=== PATIENT | male | born 1930 | race Caucasian/White ===

== ENCOUNTER → 2017-08-24 | Outpatient (REF) | payer MEDICARE ==
[2017-08-25 13:52] LABS: GAMMA GLUTAMYLTRANSPEPTIDASE 209 U/L (15-85)
== END ==
LOC: M LAB REF 13:32
DX: R74.8 Abnormal levels of other serum enzymes (principal)

== ENCOUNTER → 2017-09-02 | Outpatient (REF) | payer MEDICARE ==
[2017-09-02 15:03] LABS: VITAMIN B12 LEVEL 888 PG/ML (247-911)
== END ==
LOC: M LAB REF 13:36
DX: G30.9 Alzheimer's disease, unspecified (principal)
CPT/HCPCS: 82607

== ENCOUNTER 2020-01-26 11:55 | Emergency (ER) | payer MEDICARE ==
[~2020-01-26 11:55] MED LIST: ARIC1TAB PO; ASPI81TAEC PO; FURO20TA2 PO; ZOFR4TAB14 SL
[2020-01-26 13:03] LABS: BASO # 0.1 10^3/uL (0.0-0.2); BASO % 0.7 % (0.0-1.0); EOS # 0.1 10^3/uL (0.0-0.5); EOS % 1.4 % (0.0-3.0); HEMOGLOBIN 13.4 g/dl (13.5-17.5); LYMPH # 1.1 10^3/uL (1.5-5.0); LYMPH % 11.8 % (24.0-44.0); MEAN CORPUSCULAR HEMOGLOBIN 30.5 pg (27.0-33.0); MEAN CORPUSCULAR HGB CONC 31.9 g/dl (32.0-36.5); MEAN CORPUSCULAR VOLUME 95.7 fl (80.0-96.0); MONO # 0.8 10^3/uL (0.0-0.8); MONO % 8.5 % (0.0-5.0); NEUTROPHILS # 7.1 10^3/uL (1.5-8.5); NEUTROPHILS % 76.7 % (36.0-66.0); PLATELET COUNT, AUTOMATED 264 10^3/uL (150-450); RED BLOOD COUNT 4.39 10^6/uL (4.30-6.10); WHITE BLOOD COUNT 9.2 10^3/uL (4.0-10.0)
--- NOTE | 2020-01-26 13:09 | REP ---
INDICATION: Abdominal Pain. COMPARISON: Comparison radiograph August 26, 2017.. TECHNIQUE: Supine views of the chest and abdomen are augmented by cross-table lateral radiograph of the abdomen. Four views. FINDINGS: Chest radiograph shows no evidence of infiltrate or effusion. Heart size is borderline unchanged. The aorta is tortuous. Supine and cross-table lateral views of the abdomen show air and stool in a nondistended colon. No small bowel or large bowel dilation is seen. There is no evidence of free air. Vascular calcification is noted in a normal caliber aorta. No mass or organomegaly is seen. IMPRESSION: Normal bowel gas pattern. Mildly prominent heart. No evidence of free air or obstruction.. <Electronically signed by Salomón Gaitan > 01/26/20 [id number]
--- NOTE | 2020-01-26 13:11 | REP ---
INDICATION: fall. COMPARISON: None. TECHNIQUE: AP and frogleg views of each hip are augmented by an AP view of the pelvis. FINDINGS: The bony pelvic ring is intact. No sacral or pelvic fracture is seen. There is moderate bilateral hip joint osteoarthritis. Femoral heads are smooth and rounded. No fracture is seen. Periarticular soft tissues are unremarkable. IMPRESSION: Bilateral hip osteoarthritis. No hip or pelvic fracture seen. <Electronically signed by Salomón Gaitan > 01/26/20 [id number]
[2020-01-26 13:25] LABS: ALBUMIN 3.3 GM/DL (3.2-5.2); BILIRUBIN,DIRECT 0.1 MG/DL (0.0-0.2); BILIRUBIN,TOTAL 0.5 MG/DL (0.2-1.0); CALCIUM LEVEL 9.1 MG/DL (8.8-10.2); CREATININE FOR GFR 1.38 MG/DL (0.70-1.30); GLOMERULAR FILTRATION RATE 51.8 (>35); POTASSIUM SERUM 4.5 MEQ/L (3.5-5.1); TOTAL PROTEIN 7.1 GM/DL (6.4-8.2)
[2020-01-26] MEDS ORDERED: MAGNESIUM CITRATE 300 ML BTL PO ONE (14:45)
[2020-01-26 15:25] VITALS: BP 145/72
== END 2020-01-26 15:35 | disposition home or self-care (01) ==
LOC: EDBD 11:55 → M ED 11:55
DX: K59.00 Constipation, unspecified (principal); I51.9 Heart disease, unspecified; M16.0 Bilateral primary osteoarthritis of hip; Z79.82 Long term (current) use of aspirin; Z79.899 Other long term (current) drug therapy

== ENCOUNTER 2020-02-24 09:47 | Inpatient (IN) | payer MEDICARE ==
[~2020-02-24] VITALS: Ht 172.7 cm; Wt 73.6 kg
[2020-02-24] MEDS ORDERED: SERT25TA85 PO (10:18)
--- NOTE | 2020-02-24 10:44 | REP ---
INDICATION: trauma COMPARISON: 08/25/2017 TECHNIQUE: Axial noncontrast images from the skull base to the thoracic inlet with coronal reformations. This CT examination was performed using the following dose reduction techniques: Automated exposure control, adjustment of mA and/or kv according to the patient's size, and use of iterative reconstruction technique. FINDINGS: Age-related atrophy and microvascular ischemic changes are appreciated. The ventricles and sulci are symmetric. Kumar-white differentiation is maintained. There is no evidence for acute intracranial hemorrhage, mass/mass effect, pathology or infarction. No extra-axial fluid collection. Calvarium is intact. Paranasal sinuses and mastoid air cells are clear. IMPRESSION: Age related atrophy and microvascular ischemic changes. No acute intracranial hemorrhage, infarction, or mass/mass effect. <Electronically signed by Julio César Cortez > 02/24/20 [id number]
[2020-02-24] MEDS: NS 1,000 ML IV SCH ×2 (10:57→20:52)
[2020-02-24 11:06] LABS: BASO # 0.1 10^3/uL (0.0-0.2); EOS # 0.1 10^3/uL (0.0-0.5); EOS % 1.9 % (0.0-3.0); HEMATOCRIT 41.3 % (42.0-52.0); HEMOGLOBIN 13.2 g/dl (13.5-17.5); LYMPH # 1.3 10^3/uL (1.5-5.0); LYMPH % 19.8 % (24.0-44.0); MEAN CORPUSCULAR HEMOGLOBIN 30.6 pg (27.0-33.0); MEAN CORPUSCULAR VOLUME 95.8 fl (80.0-96.0); MONO # 0.7 10^3/uL (0.0-0.8); MONO % 10.8 % (0.0-5.0); NEUTROPHILS # 4.2 10^3/uL (1.5-8.5); NEUTROPHILS % 66.2 % (36.0-66.0); PLATELET COUNT, AUTOMATED 233 10^3/uL (150-450); RED BLOOD COUNT 4.31 10^6/uL (4.30-6.10); WHITE BLOOD COUNT 6.3 10^3/uL (4.0-10.0)
--- NOTE | 2020-02-24 11:10 | REP ---
INDICATION: Altered Mental Status COMPARISON: 01/26/2020 TECHNIQUE: Portable AP view of the chest FINDINGS: Examination is limited by portable technique, underpenetration, and poor inspiratory effort. Mediastinum and cardiac silhouette are grossly stable. Lung evans demonstrate chronic appearing interstitial changes. No obvious focal consolidation, effusion, or pneumothorax. IMPRESSION: Limited examination demonstrates presumed chronic stable changes. No obvious focal consolidation or effusion. <Electronically signed by Julio César Cortez > 02/24/20 1103
[2020-02-24 11:45] LABS: ALBUMIN 3.4 GM/DL (3.2-5.2); ALT/SGPT 21 U/L (12-78); BILIRUBIN,DIRECT 0.1 MG/DL (0.0-0.2); BILIRUBIN,TOTAL 0.4 MG/DL (0.2-1.0); BLOOD UREA NITROGEN 28 MG/DL (7-18); CALCIUM LEVEL 8.9 MG/DL (8.8-10.2); CARBON DIOXIDE LEVEL 30 MEQ/L (21-32); CHLORIDE LEVEL 110 MEQ/L (98-107); CK-MB VALUE MASS 4.4 NG/ML (<3.6); CPK CREATINE PHOSPHOKINASE 235 U/L (39-308); CREATININE FOR GFR 1.39 MG/DL (0.70-1.30); GLOMERULAR FILTRATION RATE 51.3 (>35); GLUCOSE, FASTING 67 MG/DL (70-100); MB/CK RELATIVE INDEX 1.87 (< OR =4); POTASSIUM SERUM 4.1 MEQ/L (3.5-5.1); SODIUM LEVEL 144 MEQ/L (136-145); TOTAL PROTEIN 6.9 GM/DL (6.4-8.2); TROPONIN I < 0.02 NG/ML (< 0.10)
[2020-02-24] MEDS ORDERED: ASPI-161 PO (11:45)
[2020-02-24] MEDS ORDERED: DIPH25CA32 PO (11:45)
[2020-02-24] MEDS ORDERED: FURO20TA2 PO (11:45)
[2020-02-24 12:08] LABS: OSMOLALITY SERUM 301 MOSM/KG (280-301)
[2020-02-24] MEDS ORDERED: ACETAMINOPHEN TAB 650MG DOSE (2X325MG) PO PRN (14:15)
--- NOTE | 2020-02-24 14:59 | HPEPDOC ---
General Date of Admission 02/24/20 Date of Service: Feb 24, 2020 Chief Complaint The patient is a 89-year-old male admitted with a reason for visit of FALL. Source: Family Exam Limitations: Dementia Timing/Duration: Day(s) Severity: Moderate History of Present Illness Patient is 89 years old male with past medical history of severe dementia, hypertension, cardiomegaly presented to the hospital with altered mental status. According to the family, patient has been having progressive dementia with deconditioning. He became combative and also developed multiple mechanical falls. In ER patient does not have leukocytosis. CT head was done and was negative for stroke or acute bleed. Chest XR negative for acute pulmonary diseases. Home Medications Scheduled Aspirin (Aspirin EC) 81 Mg Tablet.dr, 81 MG PO DAILY, (Reported) Furosemide (Furosemide) 20 Mg Tablet, 20 MG PO DAILY, (Reported) Sertraline Hcl (Sertraline HCl) 25 Mg Tablet, 25 MG PO DAILY, (Reported) Scheduled PRN Diphenhydramine HCl (Diphenhydramine HCl) 25 Mg Capsule, 25 MG PO QHS PRN for SLEEP, (Reported) Allergies Coded Allergies: No Known Allergies (Unverified , 02/24/20) Past Medical History Medical History Hard of hearing, dementia, Congestive heart failure (CHF), Hypertensive heart disease with uncontrolled hypertension, Acute encephalopathy on chronic dementia, mini mental status 06/17, Anemia of chronic disease, 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, Cardiomegaly Surgical History Appendectomy, hernia repair Family History Alzheimer's Social History * Smoker: Denies Alcohol: Denies Drugs: denies A-FIB/CHADSVASC A-FIB History Current/History of A-Fib/PAF?: No Current PO Anticoag Therapy: No Review of Systems Constitutional: Reports: Weakness, Fatigue; Denies: Chills, Fever Eyes: Denies: Pain, Vision change ENT: Denies: Head Aches Skin: Denies: Rash, Lesions Pulmonary: Denies: Dyspnea, Cough Cardiovascular: Denies: Chest Pain, Palpitations Gastrointestinal: Denies: Nausea, Vomiting Genitourinary: Denies: Dysuria, Frequency Hematologic: Denies: Bruising, Bleeding Excessively Endocrine: Denies: Polydipsia, Polyphagia Musculoskeletal: Denies: Neck Pain Neurological: Denies: Weakness Psych: Reports: Memory Issues Physical Examination General Exam: Positive: Moderate Distress Eye Exam: Positive: PERRLA ENT Exam: Positive: Atraumatic Neck Exam: Positive: Supple; Negative: JVD Chest Exam: Positive: Diminished Heart Exam: Positive: Rate Normal Telemetry: Positive: No significant arrhythmia Abdomen Exam: Positive: Normal bowel sounds Extremity Exam: Negative: Clubbing, Cyanosis Skin Exam: Positive: Nl turgor and temperature Neuro Exam: Positive: Strength at 5/5 X4 ext, Cranial Nerves 3-12 NL Psych Exam: Positive: Mental status NL, Oriented x 3 Vital Signs Vital Signs Date Time Temp Pulse Resp B/P (MAP) Pulse Ox O2 Delivery O2 Flow Rate FiO2 02/24/20 10:10 98.5 90 16 173/80 (111) 96 Room Air Laboratory Data Labs 24H Laboratory Tests 2 02/24/20 10:41: Immature Granulocyte % (Auto) 0.3, Neutrophils (%) (Auto) 66.2H, Lymphocytes (%) (Auto) 19.8L, Monocytes (%) (Auto) 10.8H, Eosinophils (%) (Auto) 1.9, Basophils (%) (Auto) 1.0, Neutrophils # (Auto) 4.2, Lymphocytes # (Auto) 1.3L, Monocytes # (Auto) 0.7, Eosinophils # (Auto) 0.1, Basophils # (Auto) 0.1, Nucleated Red Blood Cells % (auto) 0.0, Anion Gap 4L, Glomerular Filtration Rate 51.3, Osmolality 301, Lactic Acid Level 1.0, Calcium Level 8.9, Total Bilirubin 0.4, Direct Bilirubin 0.1, Aspartate Amino Transf (AST/SGOT) 18, Alanine Aminotransferase (ALT/SGPT) 21, Alkaline Phosphatase 112, Ammonia < 10, Total Creatine Kinase 235, Creatine Kinase MB 4.4H, Creatine Kinase MB Relative Index 1.87, Troponin I < 0.02, Total Protein 6.9, Albumin 3.4, Albumin/Globulin Ratio 1.0, Thyroid Stimulating Hormone (TSH) 1.980 CBC/BMP Laboratory Tests 02/24/20 10:41 Microbiology Microbiology 02/24/20 Respiratory Virus Panel (PCR) ([facility]) - Final, Complete Assessment/Plan Patient is 89 years old male with past medical history of severe dementia, hypertension, cardiomegaly presented to the hospital with altered mental status. According to the family, patient has been having progressive dementia with deconditioning. He became combative and also developed multiple mechanical falls. In ER patient does not have leukocytosis. CT head was done and was negative for stroke or acute bleed. Chest XR negative for acute pulmonary diseases. Problems (1) Altered mental status Status: Acute Problem Text: Metabolic encephalopathy Most likely secondary to progression of dementia (2) ALEXANDRA (acute kidney injury) Status: Acute Problem Text: Most likely combined renal and prerenal Most likely secondary to dehydration IV fluid (3) Congestive heart failure Status: Chronic Problem Text: Diastolic CHF Not in acute exacerbation Discharge Lasix secondary to dehydration . (4) Physical deconditioning Status: Chronic Problem Text: PT/OT (5) Hypertension Status: Chronic Problem Text: Amlodipine 10 mg Plan / VTE VTE Prophylaxis Ordered?: Yes CRICKET ROSENTHAL DO Feb 24, 2020 14:59
[2020-02-24] MEDS ORDERED: amLODIPine 10 MG TAB PO ONE (15:15)
[2020-02-24] MEDS: ENOXAPARIN 40MG/0.4ML SYRINGE (J1650 PER 10MG) SC SCH (15:42)
[2020-02-24 15:45] VITALS: BP 163/84
[2020-02-24] MEDS: QUEtiapine FUMARATE 12.5 MG HALF-TAB PO SCH (18:56)
--- NOTE | 2020-02-24 21:37 | ECGEPIP ---
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
[2020-02-24 22:00] VITALS: BP 102/59
[2020-02-25 06:00] VITALS: BP 119/80
[2020-02-25] MEDS: NS 1,000 ML IV SCH ×2 (06:34→16:59)
[2020-02-25 06:45] LABS: HEMATOCRIT 38.4 % (42.0-52.0); HEMOGLOBIN 12.6 g/dl (13.5-17.5); MEAN CORPUSCULAR HEMOGLOBIN 31.6 pg (27.0-33.0); MEAN CORPUSCULAR HGB CONC 32.8 g/dl (32.0-36.5); MEAN CORPUSCULAR VOLUME 96.2 fl (80.0-96.0); PLATELET COUNT, AUTOMATED 211 10^3/uL (150-450); RED BLOOD COUNT 3.99 10^6/uL (4.30-6.10); WHITE BLOOD COUNT 8.1 10^3/uL (4.0-10.0)
[2020-02-25 07:09] LABS: ALBUMIN 2.8 GM/DL (3.2-5.2); ALT/SGPT 18 U/L (12-78); BILIRUBIN,TOTAL 0.5 MG/DL (0.2-1.0); BLOOD UREA NITROGEN 20 MG/DL (7-18); CALCIUM LEVEL 8.1 MG/DL (8.8-10.2); CARBON DIOXIDE LEVEL 25 MEQ/L (21-32); CHLORIDE LEVEL 114 MEQ/L (98-107); CREATININE FOR GFR 1.02 MG/DL (0.70-1.30); GLOMERULAR FILTRATION RATE > 60.0 (>35); GLUCOSE, FASTING 108 MG/DL (70-100); SODIUM LEVEL 144 MEQ/L (136-145); TOTAL PROTEIN 6.1 GM/DL (6.4-8.2)
[2020-02-25] MEDS ORDERED: FUROSEMIDE 20 MG TAB PO SCH (09:00)
[2020-02-25] MEDS: ENOXAPARIN 40MG/0.4ML SYRINGE (J1650 PER 10MG) SC SCH (10:07)
[2020-02-25] MEDS: BISACODYL 5 MG TAB PO SCH ×2 (10:08→20:31)
[2020-02-25] MEDS: ASPIRIN 81 MG ENTERIC TAB PO SCH (10:08)
[2020-02-25] MEDS: SERTRALINE HCL 25 MG TABLET PO SCH (10:08)
[2020-02-25] MEDS: amLODIPine 10 MG TAB PO SCH (10:10)
[2020-02-25 14:00] VITALS: BP 125/75
--- NOTE | 2020-02-25 19:53 | IPNPDOC ---
Text Note Date of Service The patient was seen on 02/25/20. NOTE Subjective: Yesterday evening patient developed agitation, he tried to remove IV line Objective: GENERAL APPEARANCE: NAD HEENT: no scleral icterus, no JVD, EOMI CARDIOVASCULAR: S1S2 LUNGS: CTA ABDOMEN: soft & not tender w palpitation MUSCULOSKELETAL: no cyanosis, no swelling INTEGUMENT: no generalized pallor NEUROLOGICAL: Follows commands, no focal deficiency Assessment/Plan Patient is 89 years old male with past medical history of severe dementia, hypertension, cardiomegaly presented to the hospital with altered mental status. According to the family, patient has been having progressive dementia with deconditioning. He became combative and also developed multiple mechanical falls. In ER patient does not have leukocytosis. CT head was done and was negati ve for stroke or acute bleed. Chest XR negative for acute pulmonary diseases. Problems (1) Altered mental status/Metabolic encephalopathy/delirium Acute metabolic encephalopathy resolved, but patient continues to be forgetful and not oriented in time and place Most likely secondary to progression of dementia Continue Seroquel 12.5 daily at bedtime (2) ALEXANDRA (acute kidney injury) Resolved (3) Congestive heart failure Diastolic CHF Not in acute exacerbation Discharge Lasix secondary to dehydration (4) Physical deconditioning PT/OT (5) Hypertension Amlodipine 10 mg VS,Fishbone, I+O VS, Fishbone, I+O Laboratory Tests 02/25/20 06:31 Vital Signs Date Time Temp Pulse Resp B/P (MAP) Pulse Ox O2 Delivery O2 Flow Rate FiO2 02/25/20 14:00 98.2 93 22 125/75 (92) 97 Room Air I&O- Last 24 Hours up to 6 AM 02/25/20 06:00 Intake Total 3160 ml Output Total 1350 ml Balance 1810 ml CRICKET ROSENTHAL DO Feb 25, 2020 19:53
[2020-02-25] MEDS: QUEtiapine FUMARATE 12.5 MG HALF-TAB PO SCH (20:31)
[2020-02-25 22:00] VITALS: BP 144/72
[2020-02-26] MEDS ORDERED: cefTRIAXone SOD 1 GM in D5W MINI-BAG PLUS 50 ML IV SCH (04:00)
[2020-02-26 06:00] VITALS: BP 132/69
[2020-02-26 06:20] LABS: HEMOGLOBIN 11.6 g/dl (13.5-17.5); MEAN CORPUSCULAR HEMOGLOBIN 30.7 pg (27.0-33.0); MEAN CORPUSCULAR HGB CONC 32.2 g/dl (32.0-36.5); MEAN CORPUSCULAR VOLUME 95.2 fl (80.0-96.0); PLATELET COUNT, AUTOMATED 207 10^3/uL (150-450); RED BLOOD COUNT 3.78 10^6/uL (4.30-6.10); WHITE BLOOD COUNT 10.9 10^3/uL (4.0-10.0)
[2020-02-26 06:34] LABS: BLOOD UREA NITROGEN 14 MG/DL (7-18); CALCIUM LEVEL 8.1 MG/DL (8.8-10.2); CARBON DIOXIDE LEVEL 24 MEQ/L (21-32); CHLORIDE LEVEL 112 MEQ/L (98-107); CREATININE FOR GFR 1.02 MG/DL (0.70-1.30); GLOMERULAR FILTRATION RATE > 60.0 (>35); GLUCOSE, FASTING 102 MG/DL (70-100); MAGNESIUM LEVEL 1.6 MG/DL (1.8-2.4); POTASSIUM SERUM 3.7 MEQ/L (3.5-5.1); SODIUM LEVEL 142 MEQ/L (136-145)
[2020-02-26] MEDS: ENOXAPARIN 40MG/0.4ML SYRINGE (J1650 PER 10MG) SC SCH (09:17)
[2020-02-26] MEDS: BISACODYL 5 MG TAB PO SCH ×2 (09:17→20:00)
[2020-02-26] MEDS: SERTRALINE HCL 25 MG TABLET PO SCH (09:18)
[2020-02-26] MEDS: ASPIRIN 81 MG ENTERIC TAB PO SCH (09:18)
[2020-02-26] MEDS: amLODIPine 10 MG TAB PO SCH (09:21)
[2020-02-26] MEDS ORDERED: ISOVUE-370 76% 100ML VIAL As Ordered ONE (09:42)
--- NOTE | 2020-02-26 10:36 | REP ---
INDICATION: hematuria. COMPARISON: 12/31/2009 TECHNIQUE: Axial contrast-enhanced images from the lung bases to the pubic symphysis using 100 cc Isovue 370 intravenous contrast material. Coronal and sagittal reformations obtained. This CT examination was performed using the following dose reduction techniques: Automated exposure control, adjustment of mA and/or kv according to the patient's size, and the use of iterative reconstruction technique. FINDINGS: Lung bases demonstrate bibasilar atelectasis. Moderate to large hiatal hernia unchanged. Liver is essentially normal and includes stable subcentimeter cyst. Spleen, pancreas, gallbladder, and bilateral adrenal glands are normal. Kidneys demonstrate age-related cortical atrophy and innumerable bilateral cortical and parapelvic cysts essentially unchanged from prior examination. No acute perinephric stranding, nephrolithiasis or hydronephrosis noted. The enteric system demonstrates moderate fecal stasis without obstruction or acute inflammatory process. Pelvis demonstrates moderately distended bladder and heterogeneously enlarged prostate gland with mass effect on the base of the bladder suggesting outlet obstruction. No ascites. No free air. No adenopathy. Atherosclerotic changes to the aorta and vasculature noted without aneurysm or dissection. Musculoskeletal structures demonstrate degenerative changes without acute osseous abnormality. IMPRESSION: 1. Mild bibasilar atelectasis. 2. Chronic relatively stable abdominopelvic findings as described above. 3. Moderately distended bladder likely secondary to outlet obstruction with underlying prostatomegaly. 4. No acute ascites, focal inflammatory stranding, adenopathy, or free air. <Electronically signed by Julio César Cortez > 02/26/20 3100
--- NOTE | 2020-02-26 10:46 | REP ---
INDICATION: blood in urine COMPARISON: None TECHNIQUE: Real time vincent scale ultrasound examination using curved array transducer. FINDINGS: Examination is limited due to the patient's inability to cooperate. The kidneys demonstrate cortical thinning along with cortical and peripelvic cysts. Mild hydronephrosis cannot be excluded. Right kidney measures 10.6 x 5.9 x 5.7 cm. Left kidney measures 14.2 x 4.5 x 5.9 cm. The bladder is distended and trabeculated likely secondary to chronic outlet obstruction. Prostate gland is enlarged and measures greater than 5.0 x 4.0 x 4.8 cm. IMPRESSION: 1. Limited evaluation of the kidneys with bilateral cortical and peripelvic cystic changes noted. Mild hydronephrosis cannot definitively be excluded. 2. Bladder demonstrates changes related to chronic outlet obstruction with underlying prostatomegaly. <Electronically signed by Julio César Cortez > 02/26/20 1042
[2020-02-26] MEDS ORDERED: MAG SULF 1GM/100ML (MAG RUN) 1 GM in IV 1 EA IV ONE ×2 (13:00→17:00)
--- NOTE | 2020-02-26 16:05 | IPNPDOC ---
Text Note Date of Service The patient was seen on 02/26/20. NOTE Subjective: Patient developed few episodes of hematuria. Continues to be conf used in the morning. Objective: GENERAL APPEARANCE: NAD HEENT: no scleral icterus, no JVD, EOMI CARDIOVASCULAR: S1S2 LUNGS: CTA ABDOMEN: soft & not tender w palpitation MUSCULOSKELETAL: no cyanosis, no swelling INTEGUMENT: no generalized pallor NEUROLOGICAL: Follows commands, no focal deficiency Assessment/Plan Patient is 89 years old male with past medical history of severe dementia, hypertension, cardiomegaly presented to the hospital with altered mental status. According to the family, patient has been having progressive dementia with deconditioning. He became combative and also developed multiple mechanical falls. In ER patient does not have leukocytosis. CT head was done and was negat supa for stroke or acute bleed. Chest XR negative for acute pulmonary diseases. Problems Altered mental status/Metabolic encephalopathy/delirium UA came back positive for pyuria and hematuria Continue Seroquel 12.5 daily at bedtime UTI Patient has pyuria with hematuria CT abdomen and pelvis was done and showed Moderately distended bladder likely secondary to outlet obstruction with underlying prostatomegaly. Kidneys demonstrate age-related cortical atrophy and innumerable bilateral cortical and parapelvic cysts essentially unchanged from prior examination Continue with ceftriaxone Patient will need follow-up with urologist in the outpatient settings ALEXANDRA (acute kidney injury) Resolved Congestive heart failure Diastolic CHF Not in acute exacerbation dc Lasix secondary to dehydration Physical deconditioning PT/OT Hypertension Amlodipine 10 mg VS,Fishbone, I+O VS, Fishbone, I+O Laboratory Tests 02/26/20 05:44 Vital Signs Date Time Temp Pulse Resp B/P (MAP) Pulse Ox O2 Delivery O2 Flow Rate FiO2 02/26/20 09:21 88 122/60 02/26/20 06:00 97.5 20 93 Room Air I&O- Last 24 Hours up to 6 AM 02/26/20 06:00 Intake Total 3558 ml Output Total 350 ml Balance 3208 ml CRICKET ROSENTHAL DO Feb 26, 2020 16:05
[2020-02-26] MEDS: cefTRIAXone SOD 2 GM in D5W MINI-BAG PLUS 50 ML IV SCH (16:30)
[2020-02-26] MEDS: QUEtiapine FUMARATE 12.5 MG HALF-TAB PO SCH (20:00)
[2020-02-26 22:00] VITALS: BP 117/60
[2020-02-27 06:00] VITALS: BP 137/65
[2020-02-27 06:26] LABS: HEMATOCRIT 37.2 % (42.0-52.0); HEMOGLOBIN 12.2 g/dl (13.5-17.5); MEAN CORPUSCULAR HEMOGLOBIN 31.6 pg (27.0-33.0); MEAN CORPUSCULAR HGB CONC 32.8 g/dl (32.0-36.5); MEAN CORPUSCULAR VOLUME 96.4 fl (80.0-96.0); PLATELET COUNT, AUTOMATED 213 10^3/uL (150-450); RED BLOOD COUNT 3.86 10^6/uL (4.30-6.10); WHITE BLOOD COUNT 5.5 10^3/uL (4.0-10.0)
[2020-02-27 06:47] LABS: BLOOD UREA NITROGEN 15 MG/DL (7-18); CARBON DIOXIDE LEVEL 25 MEQ/L (21-32); CHLORIDE LEVEL 112 MEQ/L (98-107); GLOMERULAR FILTRATION RATE > 60.0 (>35); GLUCOSE, FASTING 86 MG/DL (70-100); MAGNESIUM LEVEL 2.2 MG/DL (1.8-2.4); POTASSIUM SERUM 3.8 MEQ/L (3.5-5.1); SODIUM LEVEL 145 MEQ/L (136-145)
[2020-02-27] MEDS: ENOXAPARIN 40MG/0.4ML SYRINGE (J1650 PER 10MG) SC SCH (09:19)
[2020-02-27] MEDS: BISACODYL 5 MG TAB PO SCH ×2 (09:19→19:57)
[2020-02-27] MEDS: SERTRALINE HCL 25 MG TABLET PO SCH (09:19)
[2020-02-27] MEDS: ASPIRIN 81 MG ENTERIC TAB PO SCH (09:19)
[2020-02-27] MEDS: amLODIPine 10 MG TAB PO SCH (09:21)
[2020-02-27 14:00] VITALS: BP 117/58
[2020-02-27] MEDS ORDERED: LORazepam 2 MG/ML VIAL As Ordered ONE (16:06)
[2020-02-27] MEDS: LORazepam 2 MG/ML VIAL IV PRN (16:08)
[2020-02-27] MEDS: cefTRIAXone SOD 2 GM in D5W MINI-BAG PLUS 50 ML IV SCH (17:27)
--- NOTE | 2020-02-27 18:32 | IPNPDOC ---
Text Note Date of Service The patient was seen on 02/27/20. NOTE Subjective: Pt continues to be confused in the morning. Objective: GENERAL APPEARANCE: NAD HEENT: no scleral icterus, no JVD, EOMI CARDIOVASCULAR: S1S2 LUNGS: CTA ABDOMEN: soft & not tender w palpitation MUSCULOSKELETAL: no cyanosis, no swelling INTEGUMENT: no generalized pallor NEUROLOGICAL: Follows commands, no focal deficiency Assessment/Plan Patient is 89 years old male with past medical history of severe dementia, hypertension, cardiomegaly presented to the hospital with altered mental status. According to the family, patient has been having progressive dementia with deconditioning. He became combative and also developed multiple mechanical falls. In ER patient does not have leukocytosis. CT head was done and was negative for stroke or acute bleed. Chest XR negative for acute pulmonary diseases. Problems Altered mental status/Metabolic encephalopathy/delirium UA came back positive for pyuria and hematuria Continue Seroquel 12.5 daily at bedtime Dementia Patient has rapidly progressive dementia superimposed with UTI Follow-up with neurologist in the outpatient settings UTI Patient has pyuria with hematuria CT abdomen and pelvis was done and showed Moderately distended bladder likely secondary to outlet obstruction with underlying prostatomegaly. Kidneys demonstrate age-related cortical atrophy and innumerable bilateral cortical and parapelvic cysts essentially unchanged from prior examination Continue with ceftriaxone Patient will need follow-up with urologist in the outpatient settings ALEXANDRA (acute kidney injury) Resolved Congestive heart failure Diastolic CHF Not in acute exacerbation dc Lasix secondary to dehydration Physical deconditioning PT/OT Hypertension Amlodipine 10 mg VS,Fishbone, I+O VS, Fishbone, I+O Laboratory Tests 02/27/20 05:38 Vital Signs Date Time Temp Pulse Resp B/P (MAP) Pulse Ox O2 Delivery O2 Flow Rate FiO2 02/27/20 09:21 71 139/66 02/27/20 06:00 97.4 17 92 Room Air I&O- Last 24 Hours up to 6 AM 02/27/20 06:00 Intake Total 2280 ml Balance 2280 ml CRICKET ROSENTHAL DO Feb 27, 2020 18:32
[2020-02-27] MEDS: QUEtiapine FUMARATE 12.5 MG HALF-TAB PO SCH (19:57)
[2020-02-27 22:00] VITALS: BP 126/70
[2020-02-28 06:00] VITALS: BP 124/68
[2020-02-28 06:20] LABS: HEMATOCRIT 38.4 % (42.0-52.0); HEMOGLOBIN 12.4 g/dl (13.5-17.5); MEAN CORPUSCULAR HEMOGLOBIN 30.8 pg (27.0-33.0); MEAN CORPUSCULAR HGB CONC 32.3 g/dl (32.0-36.5); MEAN CORPUSCULAR VOLUME 95.5 fl (80.0-96.0); PLATELET COUNT, AUTOMATED 219 10^3/uL (150-450); RED BLOOD COUNT 4.02 10^6/uL (4.30-6.10); WHITE BLOOD COUNT 6.6 10^3/uL (4.0-10.0)
[2020-02-28 06:57] LABS: BLOOD UREA NITROGEN 22 MG/DL (7-18); CALCIUM LEVEL 8.4 MG/DL (8.8-10.2); CARBON DIOXIDE LEVEL 22 MEQ/L (21-32); CHLORIDE LEVEL 113 MEQ/L (98-107); CREATININE FOR GFR 0.99 MG/DL (0.70-1.30); GLOMERULAR FILTRATION RATE > 60.0 (>35); GLUCOSE, FASTING 92 MG/DL (70-100); MAGNESIUM LEVEL 2.1 MG/DL (1.8-2.4); POTASSIUM SERUM 3.6 MEQ/L (3.5-5.1); SODIUM LEVEL 144 MEQ/L (136-145)
[2020-02-28] MEDS: amLODIPine 10 MG TAB PO SCH (08:19)
[2020-02-28] MEDS: ASPIRIN 81 MG ENTERIC TAB PO SCH (08:19)
[2020-02-28] MEDS: ENOXAPARIN 40MG/0.4ML SYRINGE (J1650 PER 10MG) SC SCH (08:19)
[2020-02-28] MEDS: SERTRALINE HCL 25 MG TABLET PO SCH (08:19)
[2020-02-28] MEDS: SENOKOT S TAB PO SCH ×2 (09:00→19:59)
[2020-02-28] MEDS ORDERED: LORazepam 2 MG/ML VIAL As Ordered ONE (12:17)
[2020-02-28] MEDS: LORazepam 2 MG/ML VIAL IV PRN (12:20)
[2020-02-28 14:00] VITALS: BP 126/69
[2020-02-28] MEDS: cefTRIAXone SOD 2 GM in D5W MINI-BAG PLUS 50 ML IV SCH (17:13)
[2020-02-28] MEDS: QUEtiapine FUMARATE 12.5 MG HALF-TAB PO SCH (19:59)
[2020-02-29 06:00] VITALS: BP 141/71
[2020-02-29 06:23] LABS: HEMATOCRIT 42.1 % (42.0-52.0); HEMOGLOBIN 13.3 g/dl (13.5-17.5); MEAN CORPUSCULAR HEMOGLOBIN 31.4 pg (27.0-33.0); MEAN CORPUSCULAR HGB CONC 31.6 g/dl (32.0-36.5); MEAN CORPUSCULAR VOLUME 99.3 fl (80.0-96.0); PLATELET COUNT, AUTOMATED 216 10^3/uL (150-450); RED BLOOD COUNT 4.24 10^6/uL (4.30-6.10); WHITE BLOOD COUNT 6.1 10^3/uL (4.0-10.0)
[2020-02-29 06:41] LABS: BLOOD UREA NITROGEN 20 MG/DL (7-18); CALCIUM LEVEL 8.5 MG/DL (8.8-10.2); CARBON DIOXIDE LEVEL 19 MEQ/L (21-32); CHLORIDE LEVEL 117 MEQ/L (98-107); CREATININE FOR GFR 0.93 MG/DL (0.70-1.30); GLOMERULAR FILTRATION RATE > 60.0 (>35); GLUCOSE, FASTING 82 MG/DL (70-100); MAGNESIUM LEVEL 2.3 MG/DL (1.8-2.4); POTASSIUM SERUM 4.3 MEQ/L (3.5-5.1); SODIUM LEVEL 145 MEQ/L (136-145)
[2020-02-29] MEDS ORDERED: BACT400T PO (11:15)
[2020-02-29] MEDS: ASPIRIN 81 MG ENTERIC TAB PO SCH (11:23)
[2020-02-29] MEDS: SERTRALINE HCL 25 MG TABLET PO SCH (11:23)
[2020-02-29] MEDS: SENOKOT S TAB PO SCH (11:23)
[2020-02-29] MEDS: ENOXAPARIN 40MG/0.4ML SYRINGE (J1650 PER 10MG) SC SCH (11:24)
[2020-02-29 11:27] VITALS: BP 133/69
[2020-02-29] MEDS: amLODIPine 10 MG TAB PO SCH (11:27)
[2020-02-29] MEDS ORDERED: QUET1TAB7 PO (11:33)
--- NOTE | 2020-02-29 11:49 | DS.PDOC ---
Discharge Summary General Date of Admission Feb 24, 2020 at 14:14 Date of Discharge 02/29/20 Discharge Summary PROCEDURES PERFORMED DURING STAY: [None]. ADMITTING DIAGNOSES: Altered mental status/Metabolic encephalopathy/delirium Dementia UTI ALEXANDRA (acute kidney injury) Congestive heart failure Physical deconditioning Hypertension DISCHARGE DIAGNOSES: COMPLICATIONS/CHIEF COMPLAINT: Altered Mental Status. HISTORY OF PRESENT ILLNESS: Patient is 89 years old male with past medical history of severe dementia, hypertension, cardiomegaly presented to the hospital with altered mental status. According to the family, patient has been having progressive dementia with deconditioning. He became combative and also developed multiple mechanical falls. In ER patient does not have leukocytosis. CT head was done and was negative for stroke or acute bleed. Chest XR negative for acute pulmonary diseases. HOSPITAL COURSE: During hospital stay following issues addressed Problems Altered mental status/Metabolic encephalopathy/delirium UA came back positive for pyuria and hematuria Continue Seroquel 12.5 daily at bedtime Dementia Patient has rapidly progressive dementia superimposed with UTI Follow-up with neurologist in the outpatient settings UTI Patient has pyuria with hematuria CT abdomen and pelvis was done and showed Moderately distended bladder likely secondary to outlet obstruction with underlying prostatomegaly. Kidneys demonstrate age-related cortical atrophy and innumerable bilateral cortical and parapelvic cysts essentially unchanged from prior examination Patient received treatment with ceftriaxone Patient will need follow-up with urologist in the outpatient settings ALEXANDRA (acute kidney injury) Resolved Congestive heart failure Diastolic CHF Not in acute exacerbation Physical deconditioning PT/OT Amlodipine 10 mg DISCHARGE MEDICATIONS: Please see below. ALLERGIES: Please see below. PHYSICAL EXAMINATION ON DISCHARGE: VITAL SIGNS: Please see below. GENERAL APPEARANCE: NAD HEENT: no scleral icterus, no JVD, EOMI CARDIOVASCULAR: S1S2 LUNGS: CTA ABDOMEN: soft & not tender w palpitation MUSCULOSKELETAL: no cyanosis, no swelling INTEGUMENT: no generalized pallor NEUROLOGICAL: Follows commands, no focal deficiency LABORATORY DATA: Please see below. IMAGING: [facility] NAME: ELIDA KRUEGER DATE OF : 1930 AGE: 89 SEX: M REPORT #: [id number] ROOM: [facility] TECHNOLOGIST: [facility] DOCTOR: CRICKET ROSENTHAL DO Ordered for Date&Time: 02/26/20 0908 cc: [~ rep ct ivnm] Service Date&Time: 02/26/20 0950 This report is in Signed status. If this report is in a DRAFT status it has not yet been reviewed by the radiologist for accuracy. Thank you for having your radiology procedures performed at [facility] RADIOLOGY REPORT Date&Time printed: [~ rep prt dt last] [~ rep prt tm last] Page [address] of [address] [id number] RADIOLOGY REPORT This report is in Signed status. If this report is in a DRAFT status it has not yet been reviewed by the radiologist for accuracy. Thank you for having your radiology procedures performed at [facility] RADIOLOGY REPORT Date&Time printed: [~ rep prt dt last] [~ rep prt tm last] Page 1 of 1 COMPARISON: 12/31/2009 TECHNIQUE: Axial contrast-enhanced images from the lung bases to the pubic symphysis using 100 cc Isovue 370 intravenous contrast material. Coronal and sagittal reformations obtained. This CT examination was performed using the following dose reduction techniques: Automated exposure control, adjustment of mA and/or kv according to the patient's size, and the use of iterative reconstruction technique. FINDINGS: Lung bases demonstrate bibasilar atelectasis. Moderate to large hiatal hernia unchanged. Liver is essentially normal and includes stable subcentimeter cyst. Spleen, pancreas, gallbladder, and bilateral adrenal glands are normal. Kidneys demonstrate age-related cortical atrophy and innumerable bilateral cortical and parapelvic cysts essentially unchanged from prior examination. No acute perinephric stranding, nephrolithiasis or hydronephrosis noted. The enteric system demonstrates moderate fecal stasis without obstruction or acute inflammatory process. Pelvis demonstrates moderately distended bladder and heterogeneously enlarged prostate gland with mass effect on the base of the bladder suggesting outlet obstruction. No ascites. No free air. No adenopathy. Atherosclerotic changes to the aorta and vasculature noted without aneurysm or dissection. Musculoskeletal structures demonstrate degenerative changes without acute osseous abnormality. IMPRESSION: 1. Mild bibasilar atelectasis. 2. Chronic relatively stable abdominopelvic findings as described above. 3. Moderately distended bladder likely secondary to outlet obstruction with underlying prostatomegaly. 4. No acute ascites, focal inflammatory stranding, adenopathy, or free air. <Electronically signed by Julio César Cortez > 02/26/20 1032 DD: Julio César Cortez MD 02/26/20 1026 DT: ZEFERINO 02/26/20 1032 DS: REZA 02/26/20 1026 02/26/20 1026 [~ rep ct labl] PROGNOSIS: Fair ACTIVITY: [As tolerated]. DIET: Cardiac. ITEMS TO FOLLOWUP ON ON OUTPATIENT: Follow-up with PCP and urologist DISCHARGE CONDITION: [Stable]. TIME SPENT ON DISCHARGE: Greater than 40 minutes. Vital Signs/I&Os Vital Signs Date Time Temp Pulse Resp B/P (MAP) Pulse Ox O2 Delivery O2 Flow Rate FiO2 02/29/20 11:27 75 133/69 02/29/20 06:00 97.8 18 94 Room Air I&O- Last 24 Hours up to 6 AM 02/29/20 06:00 Intake Total 720 ml Output Total 0 ml Balance 720 ml Laboratory Data Labs 24H Laboratory Tests 2 02/29/20 05:56: Nucleated Red Blood Cells % (auto) 0.0, Anion Gap 9, Glomerular Filtration Rate > 60.0, Calcium Level 8.5L, Magnesium Level 2.3 CBC/BMP Laboratory Tests 02/29/20 05:56 Microbiology Microbiology 02/25/20 Urine Culture - Final, Complete Corynebacterium Species 02/24/20 Respiratory Virus Panel (PCR) (MATEUS) - Final, Complete Discharge Medications Scheduled Aspirin (Aspirin EC) 81 Mg Tablet.dr, 81 MG PO DAILY, (Reported) Furosemide (Furosemide) 20 Mg Tablet, 20 MG PO DAILY, (Reported) Quetiapine Fumarate (Quetiapine Fumarate) 25 Mg Tablet, 12.5 MG PO DAILY@20 Sertraline Hcl (Sertraline HCl) 25 Mg Tablet, 25 MG PO DAILY, (Reported) Sulfamethoxazole/Trimethoprim (Bactrim 400-80 mg Tablet) 1 Each Tablet, 1 TAB PO BID Scheduled PRN Diphenhydramine HCl (Diphenhydramine HCl) 25 Mg Capsule, 25 MG PO QHS PRN for SLEEP, (Reported) Allergies Coded Allergies: No Known Allergies (Unverified , 02/24/20) CRICKET ROSENTHAL DO Feb 29, 2020 11:49
== END 2020-02-29 14:30 | DRG 884 ==
LOC: M ED 09:47 → EDBD 09:47 → M ED INP 14:14 → M MSPAV 15:24
PROVIDERS: ADMIT Internal Medicine; ATTEND Internal Medicine
DX: F03.91 Unspecified dementia, unspecified severity, with behavioral disturbance (principal); G93.41 Metabolic encephalopathy; N17.9 Acute kidney failure, unspecified; I50.32 Chronic diastolic (congestive) heart failure; N39.0 Urinary tract infection, site not specified; I11.0 Hypertensive heart disease with heart failure; Z79.82 Long term (current) use of aspirin; Z79.899 Other long term (current) drug therapy; R31.9 Hematuria, unspecified